=== PATIENT | male | born 1940 | race Caucasian/White ===

== ENCOUNTER → 2018-01-20 | Outpatient (CLI) | payer MEDICARE, BC | LOC: LAB SHORT 09:50 → PLD 09:50 | DX: D48.5 Neoplasm of uncertain behavior of skin (principal) | CPT/HCPCS: 88305 ==

== ENCOUNTER → 2018-02-04 | Outpatient (CLI) | payer MEDICARE, BC | END | disposition home or self-care (01) | LOC: PLD 13:24 → LAB SHORT 13:24 | DX: C44.319 Basal cell carcinoma of skin of other parts of face (principal) | CPT/HCPCS: 88305 ==

== ENCOUNTER → 2018-04-15 | Outpatient (CLI) | END | disposition home or self-care (01) ==

== ENCOUNTER 2019-10-26 20:28 | Emergency (ER) | payer MEDICARE, BC ==
[~2019-10-26] VITALS: Ht 182.9 cm; Wt 83.9 kg
[2019-10-26] MEDS ORDERED: Cleocin HCl150 MG PO (22:19)
== END 2019-10-26 22:57 | disposition home or self-care (01) ==
LOC: ER 20:28
DX: S61.412A Laceration without foreign body of left hand, initial encounter (principal); Z23 Encounter for immunization; Z88.0 Allergy status to penicillin; W23.0XXA Caught, crushed, jammed, or pinched between moving objects, initial encounter
CPT/HCPCS: 12001; 73130; 90471; 90714; 99283-25

== ENCOUNTER → 2020-11-15 | Outpatient (CLI) | payer MEDICARE, BC ==
[~2020-11-15] MED LIST: Cleocin HCl150 MG PO
== END | disposition home or self-care (01) ==
LOC: PLD 11:05 → LAB SHORT 11:05
DX: D04.21 Carcinoma in situ of skin of right ear and external auricular canal (principal)
CPT/HCPCS: 88305

== ENCOUNTER 2021-07-20 00:48 | Observation (INO) | payer OTHER, MEDICARE, BC ==
[~2021-07-20] VITALS: Ht 185.4 cm; Wt 81.8 kg
[2021-07-20 01:21] LABS: BASOPHILS ABSOLUTE AUTO 0.03 K/mm3 (0.00-0.23); BASOPHILS PERCENT AUTO 1 % (0-2); EOSINOPHILS ABSOLUTE AUTO 0.16 K/mm3 (0.00-0.68); EOSINOPHILS PERCENT AUTO 3 % (0-6); Hematocrit 38.1 % (37.0-53.0); Hemoglobin 13.1 g/dL (13.5-17.5); IMMATURE GRAN ABSOLUTE AUTO 0.01 K/mm3 (0.00-0.10); IMMATURE GRAN PERCENT AUTO 0 % (0-1); LYMPHOCYTES ABSOLUTE AUTO 2.03 K/mm3 (0.84-5.20); LYMPHOCYTES PERCENT AUTO 42 % (21-46); MONOCYTES ABSOLUTE AUTO 0.42 K/mm3 (0.16-1.47); MONOCYTES PERCENT AUTO 9 % (4-13); Mean Corpuscular HGB 32.7 pg (26.0-34.0); Mean Corpuscular HGB Conc 34.4 g/dL (31.5-36.5); Mean Corpuscular Volume 95 fL (80-100); Mean Platelet Volume 9.8 fL (9.1-12.4); NEUTROPHILS ABSOLUTE AUTO 2.17 K/mm3 (1.96-9.15); NEUTROPHILS PERCENT AUTO 45 % (41-73); Platelet Count 208 K/mm3 (150-400); RDW Coefficient Variation 13.5 % (11.7-14.2); RDW Standard Deviation 47.2 fL (35.1-46.3); Red Blood Cell Count 4.01 M/mm3 (4.30-5.90); White Blood Cell Count 4.82 K/mm3 (4.00-11.30)
[2021-07-20 01:35] LABS: Alanine Aminotransfer (ALT/SGP 38 U/L (12-78); Albumin, Blood 3.6 g/dL (3.4-5.0); Alk Phos 61 U/L (50-136); Anion Gap 7 mmol/L (6-16); Aspartate Aminotrans (AST/SGOT 25 U/L (12-37); Bilirubin, Total 0.8 mg/dL (0.1-1.0); Blood Urea Nitrogen 14 mg/dL (8-24); Bun/Creatinine Ratio 17.6 (12.0-20.0); CO2, Blood 25 mmol/L (21-32); Calcium, Blood 8.4 mg/dL (8.5-10.1); Chloride, Blood 110 mmol/L (98-108); Globulin, Blood 3.5 g/dL (2.2-4.0); Glomerular Filtration Rate >60 (60-); Glucose, Blood 75 mg/dL (70-99); Potassium, Blood 3.7 mmol/L (3.5-5.5); Sodium, Blood 142 mmol/L (136-145); Total Protein, Blood 7.1 g/dL (6.4-8.2); Troponin I <0.015 ng/mL (0.000-0.040)
[2021-07-20 08:53] LABS: SARS-Cov-2 (COVID-19) PCR, MMC NEGATIVE (NEGATIVE)
[2021-07-20 10:29] LABS: Source, Urine Clean Catch
[2021-07-20 10:50] LABS: Appearance, Urine Clear (Clear); Bilirubin, Urine Neg (Neg); Blood, Urine Neg (Neg); Color, Urine Yellow (P-Yellow); Glucose Qualitative, Urine Neg (Neg); Ketones, Urine Neg (Neg); Leukocyte Esterase, Urine 1+ (Neg); Nitrite, Urine Neg (Neg); Protein, Urine 1+ (Neg); Urobilinogen, Urine 1+ (Normal)
[2021-07-20 11:17] LABS: Bacteria Rare /hpf; Red Blood Cells, Urine 0-2 /hpf (0-2); Squamous Epithelial Cells Few /hpf (Few)
--- NOTE | 2021-07-20 13:04 | NUR ---
Patient admit to the [facility] floor, The Patient is a 80 Y/O Male admitted for pssoible stroke. The patient is A/OX4, he stated his symptoms have resolved but he has trouble touching his left second digit to his left thumb. His eyes are PEARLA, and able to follow my pen in all cardinal directions of gaze. He does not have communication issues and no facial droop is noted. He can raise his eyebrows and his face is symmetrical. 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 The patient has strong dorsal flexion and extention. The patient stated he feels fine and he feels he is ready to go home. ready to go
[2021-07-20] MEDS ORDERED: PLAVIX75 MG PO (15:48)
[2021-07-20] MEDS ORDERED: ATOR40TA PO (15:48)
--- NOTE | 2021-07-20 18:47 | NUR ---
Discharge Summary, The patient was A/OX4 TO PERSON, PLACE, TIME AND EVENT. He was cooperative and pleasent. The patient was being treated for possible stroke. He had problems with his left hand movement and fine motor but no other symptoms of the stroke. He was independent in the room and on RA. The patient rested most of the day in bed and contacted his family. The patient was given verbal and writen discharge instructions by the charge nurse and he gaver verbal and written understanding of the instructions. The patient was escorted to the font of the hospital and picked up by his .
== END 2021-07-20 17:27 | disposition home or self-care (01) ==
LOC: ER 00:48 → MEDS 00:49
PROVIDERS: Emergency Medicine; ADMIT Internal Medicine
DX: G45.9 Transient cerebral ischemic attack, unspecified (principal); I69.892 Facial weakness following other cerebrovascular disease; Z88.0 Allergy status to penicillin; Z86.12 Personal history of poliomyelitis; Z20.822 Contact with and (suspected) exposure to COVID-19
CPT/HCPCS: 36415; 70450; 70496; 80053; 81001; 83036; 84484; 85025; 87086; 93005; 93010; 93306; 93880; 96372; 99285-25; A9270; G0378; J1650; J7030; Q9967; U0004

== ENCOUNTER 2025-08-13 00:19 | Day surgery (SDC) | payer MEDICARE, BC ==
[~2025-08-13] VITALS: Wt 77.2 kg
[~2025-08-13 00:19] MED LIST changes: +ASCORBIC ACID500 MG PO; +ATOR40TA PO; +CO Q10100 MG PO; +DONEPEZIL HCL10 MG PO; +FERROUS GLUCON324 M2 PO; +MEMA10 PO; +MULTI-VITAMIN1 EAC2 PO; +NS IV SCH; +PLAVIX75 MG PO; +Tobrex5 ML BOTHEYES; +Vitamin B Comple1 EA PO; +[UNRECOGNIZED DRUG - OTHER] IV SCH
[2025-08-13 13:26] VITALS: BP 138/70
[2025-08-13 14:24] VITALS: BP 114/66
[2025-08-13 14:54] VITALS: BP 121/62
== END 2025-08-13 14:57 | disposition home or self-care (01) ==
LOC: ATC 00:19
DX: G30.1 Alzheimer's disease with late onset (principal); F02.A0 Dementia in other diseases classified elsewhere, mild, without behavioral disturbance, psychotic disturbance, mood disturbance, and anxiety; Z88.0 Allergy status to penicillin; Z79.899 Other long term (current) drug therapy; Z87.891 Personal history of nicotine dependence
CPT/HCPCS: 96365; J0175

== ENCOUNTER 2025-09-15 00:27 | Day surgery (SDC) | payer MEDICARE, BC ==
[~2025-09-15 00:27] MED LIST changes: -NS IV SCH; -[UNRECOGNIZED DRUG - OTHER] IV SCH
[2025-09-15] MEDS ORDERED: NS IV SCH (06:00)
[2025-09-15] MEDS ORDERED: [UNRECOGNIZED DRUG - OTHER] IV SCH (06:00)
[2025-09-15 14:22] VITALS: BP 122/65
== END 2025-09-15 15:57 | disposition home or self-care (01) ==
LOC: ATC 00:27
DX: G30.1 Alzheimer's disease with late onset (principal); F02.A0 Dementia in other diseases classified elsewhere, mild, without behavioral disturbance, psychotic disturbance, mood disturbance, and anxiety; Z88.0 Allergy status to penicillin; Z79.899 Other long term (current) drug therapy; Z87.891 Personal history of nicotine dependence
CPT/HCPCS: 96365; J0175

== ENCOUNTER 2025-10-13 01:31 | Day surgery (SDC) | payer MEDICARE, BC ==
[2025-10-13 14:38] VITALS: BP 120/62
[2025-10-13 16:20] VITALS: BP 130/82
--- NOTE | 2025-10-13 16:20 | NUR ---
30 MINUTE OBSERVATION COMPLETE POST KISUNLA. PT DENIES COMPLAINTS, VSS, NO CONCERNS AT THIS TIME. PT WILL RETURN IN 4 WEEKS FOR NEXT APPT.
== END 2025-10-13 16:22 | disposition home or self-care (01) ==
LOC: ATC 01:31
DX: G30.1 Alzheimer's disease with late onset (principal); F02.A2 Dementia in other diseases classified elsewhere, mild, with psychotic disturbance
CPT/HCPCS: 96413; 99211; J0175

== ENCOUNTER 2025-11-16 07:12 | Day surgery (SDC) | payer MEDICARE, BC ==
[2025-11-16 15:51] VITALS: BP 104/59
== END 2025-11-16 16:52 | disposition home or self-care (01) ==
LOC: ATC 07:12
DX: G30.1 Alzheimer's disease with late onset (principal); F02.A0 Dementia in other diseases classified elsewhere, mild, without behavioral disturbance, psychotic disturbance, mood disturbance, and anxiety; Z88.0 Allergy status to penicillin; Z87.891 Personal history of nicotine dependence; Z00.6 Encounter for examination for normal comparison and control in clinical research program
CPT/HCPCS: 96413; J0175; J7050